=== PATIENT | male | born 1975 | race Caucasian/White ===

== ENCOUNTER 2019-06-29 01:51 | Emergency (ER) | payer BC ==
[2019-06-29] MEDS ORDERED: Sodium Chloride 0.9% 1,000 ML IV ONE (02:13)
--- NOTE | 2019-06-29 02:18 | EDM.PDOC ---
ED HPI GENERAL MEDICAL PROBLEM - General Chief Complaint: Gastrointestinal Problem Stated Complaint: abdominal pain, diarrhea Time Seen by Provider: 06/29/19 02:00 Source of Information: Reports: Patient, Significant Other History Limitations: Reports: No Limitations - History of Present Illness INITIAL COMMENTS - FREE TEXT/NARRATIVE: Patient presents with epigastric pain severe for the past 1.5 hours. He feels bloated but has passed gas and belching fairly often the past few days. He has had diarrhea for the last 4 days from 4-10 times a day. No vomiting except one time 5 days ago, which was after a night at the bar. He's never had this before and denies any history of ulcers, pancreatitis or diabetes. 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: Other (see below) Other Treatments ASSET PROTECTION SPECIALIST: took pepto at 2100 06/28 - Related Data Allergies Allergy/AdvReac Type Severity Reaction Status Date / Time No Known Allergies Allergy Verified 06/29/19 02:28 Home Meds: Home Meds Lisinopril/Hydrochlorothiazide [Lisinopril-HCTZ 10-12.5 MG] 06/29/19 [History] Social & Family History - Tobacco Use Smoking Status *Q: Never Smoker Second Hand Smoke Exposure: No - Caffeine Use Caffeine Use: Reports: Coffee, Soda - Recreational Drug Use Recreational Drug Use: No ED ROS GENERAL - Review of Systems Review Of Systems: See Below Constitutional: Reports: Malaise. Denies: Fever, Chills, Weakness HEENT: Reports: No Symptoms Respiratory: Reports: No Symptoms Cardiovascular: Reports: No Symptoms Endocrine: Reports: No Symptoms GI/Abdominal: Reports: Abdominal Pain, Diarrhea. Denies: Decreased Appetite, Vomiting : Reports: Dysuria (a little bit that he figured was because he was dehydrated ). Denies: Flank Pain Musculoskeletal: Reports: No Symptoms Skin: Reports: No Symptoms Neurological: Reports: No Symptoms Psychiatric: Reports: No Symptoms ED EXAM, GI/ABD - Physical Exam Exam: See Below Exam Limited By: No Limitations General Appearance: Alert, WD/WN, No Apparent Distress Eyes: Bilateral: Normal Appearance, EOMI Ears: Normal External Exam, Hearing Grossly Normal Nose: Normal Inspection, No Blood Throat/Mouth: Normal Inspection, Normal Lips, Normal Voice, No Airway Compromise Head: Atraumatic, Normocephalic Neck: Normal Inspection, Full Range of Motion Respiratory/Chest: No Respiratory Distress, Lungs Clear, Normal Breath Sounds, No Accessory Muscle Use, Chest Non-Tender Cardiovascular: Regular Rate, Rhythm, No Murmur GI/Abdominal Exam: Non-Tender, No Organomegaly, Distended (mild-moderate), Abnormal Bowel Sounds (a little increased). No: Guarding, Rigid, Tender Back Exam: Normal Inspection, Full Range of Motion. No: CVA Tenderness (L), CVA Tenderness (R) Extremities: Normal Inspection, Normal Range of Motion Neurological: Alert, Oriented, Normal Cognition, No Motor/Sensory Deficits Psychiatric: Normal Affect, Normal Mood Skin Exam: Warm, Dry, Intact, Normal Color, No Rash Course - Vital Signs Last Recorded V/S: Last Vital Signs Temp 97.0 F 06/29/19 02:03 Pulse 96 06/29/19 02:03 Resp 18 06/29/19 02:03 BP 129/70 06/29/19 02:03 Pulse Ox 99 06/29/19 02:03 - Orders/Labs/Meds Orders: Active Orders 24 hr Category Date Time Status Abdomen Pelvis w Cont [CT] Stat Exams 06/29/19 02:11 Taken Sodium Chloride 0.9% [Normal Saline] 50 ml Med 06/29/19 02:30 Active IV ASDIRECTED Medication Orders Sodium Chloride (Normal Saline) 50 mls @ 200 mls/hr IV ASDIRECTED MICHELL Last Admin: 06/29/19 02:47 Dose: 200 mls/hr Labs: Laboratory Tests 06/29/19 06/29/19 06/29/19 Range/Units 02:17 02:17 02:50 WBC 6.02 (5.00-10.00) 10^3/uL RBC 5.04 (4.50-6.00) 10^6/uL Hgb 14.5 (13.0-17.0) g/dL Hct 40.8 (40.0-52.0) % MCV 81.0 L (82.0-92.0) fL MCH 28.8 (27.0-31.0) pg MCHC 35.5 (32.0-36.0) g/dL RDW 13.3 (11.5-14.5) % Plt Count 191 (150-400) 10^3/uL MPV 9.7 (7.4-10.4) fL Immature Gran % (Auto) 0.2 (0.0-5.0) % Neut % (Auto) 79.9 H (50.0-70.0) % Lymph % (Auto) 7.1 L (20.0-40.0) % [place] % (Auto) 9.3 H (2.0-8.0) % Eos % (Auto) 3.3 H (1.0-3.0) % Baso % (Auto) 0.2 (0.0-1.0) % Immature Gran # (Auto) 0.01 (0.00-0.50) 10^3/uL Neut # (Auto) 4.81 (2.50-7.00) 10^3/uL Lymph # (Auto) 0.43 L (1.00-4.00) 10^3/uL [place] # (Auto) 0.56 (0.10-0.80) 10^3/uL Eos # (Auto) 0.20 (0.10-0.30) 10^3/uL Baso # (Auto) 0.01 (0.00-0.10) 10^3/uL Sodium 139 (136-145) mmol/L Potassium 3.1 L (3.3-5.3) mmol/L Chloride 101 (98-115) mmol/L Carbon Dioxide 24.9 (21.0-32.0) mmol/L Anion Gap 16.2 H (5-15) mmol/L BUN 12 (6-25) mg/dL Creatinine 0.84 (0.51-1.17) mg/dL Est Cr Clr Drug Dosing 129.47 mL/min Estimated GFR (MDRD) > 60 mL/min Glucose 102 H (75 - 99) mg/dL Calcium 8.4 L (8.7-10.3) mg/dL Total Bilirubin 0.5 (0.2-1.0) mg/dL AST 63 H (15-37) U/L ALT 48 (12-78) U/L Alkaline Phosphatase 66 (46-116) IU/L Total Protein 6.6 (6.4-8.2) g/dL Albumin 3.02 (3.00-4.80) g/dL Lipase 314 (73-393) U/L Specimen Type Urinblad Urine Color Dark yellow H (YELLOW) Urine Appearance Clear (CLEAR) Urine pH 5.5 (5.0-9.0) Ur Specific [place] 1.025 (1.005-1.030) Urine Protein Trace H (NEGATIVE) mg/dL Urine Glucose (UA) Negative (NEGATIVE) mg/dL Urine Ketones 15 H (NEGATIVE) mg/dL Urine Occult Blood Moderate H (NEGATIVE) Urine Nitrite Negative (NEGATIVE) Urine Bilirubin Small H (NEGATIVE) Urine Urobilinogen 0.2 (0.2-1.0) E.U./dL Ur Leukocyte Esterase Trace H (NEGATIVE) Urine RBC 20-30 H (0-5) /HPF Urine WBC 5-10 H (0-5) /HPF Ur Epithelial Cells Few /LPF Amorphous Sediment Few (0/HPF) /HPF Urine Bacteria Not seen (NONE TO FEW) /HPF Urine Mucus Many H (NEGATIVE) /LPF Meds: Medications Generic Name Dose Route Start Last Admin Trade Name Freq PRN Reason Stop Dose Admin Sodium Chloride 50 mls @ 200 mls/hr 06/29/19 02:30 06/29/19 02:47 Normal Saline IV 200 mls/hr ASDIRECTED MICHELL Administration Discontinued Medications Generic Name Dose Route Start Last Admin Trade Name Freq PRN Reason Stop Dose Admin Sodium Chloride 1,000 mls @ 999 mls/hr 06/29/19 02:13 06/29/19 02:44 Normal Saline IV 06/29/19 03:13 999 mls/hr .BOLUS ONE Administration Iopamidol 100 ml 06/29/19 02:30 06/29/19 02:47 Isovue-370 (76%) IV 06/29/19 02:31 100 ml ONETIME ONE Administration - Re-Assessments/Exams Free Text/Narrative Re-Assessment/Exam: 06/29/19 03:57 UA shows moderate hematuria without evidence of infection. CBC, CMP and Lipase are basically normal. CT shows minimal diffuse thickening of the gallbladder and suggests US. CT also shows underdistended urinary bladder. Discussed findings and recommendations with patient and his . He is feeling well now without pain. The only treatment we gave was IV fluids. I encouraged increased water intake. Patient discharged to home in stable condition. Departure - Departure Time of Disposition: 03:51 Disposition: Home, Self-Care 01 Condition: Good Clinical Impression: Gall bladder disease, Microscopic hematuria, Epigastric abdominal pain - Discharge Information Instructions: Hematuria, Adult Forms: ED Department Discharge Additional Instructions: 1. Drink 8 cups of water daily. 2. Try to notice if you seem to get abdominal pain after eating certain types of foods. 3. Follow up with your PCP for evaluation of the gall bladder with ultrasound and recheck of the hematuria (blood in urine). 4. You can use Ibuprofen 200-600 mg three times a day as needed for pain control. 5. Return to ER as needed. - My Orders Last 24 Hours: My Active Orders 06/29/19 02:11 Abdomen Pelvis w Cont [CT] Stat 06/29/19 02:30 Sodium Chloride 0.9% [Normal Saline] 50 ml IV ASDIRECTED - Assessment/Plan Last 24 Hours: My Active Orders 06/29/19 02:11 Abdomen Pelvis w Cont [CT] Stat 06/29/19 02:30 Sodium Chloride 0.9% [Normal Saline] 50 ml IV ASDIRECTED
[2019-06-29] MEDS ORDERED: Sodium Chloride 0.9% 50 ML IV SCH (02:30)
[2019-06-29] MEDS ORDERED: Iopamidol 755 Mg/ML 100 ML Bottle IV ONE (02:30)
[2019-06-29 03:12] LABS: ANION GAP 16.2 mmol/L (5-15); CHLORIDE,CL 101 mmol/L (98-115); SODIUM,NA 139 mmol/L (136-145)
--- NOTE | 2019-06-29 07:24 | CT ---
[id number] CT/CT Abdomen Pelvis W IV EXAM: CT Abdomen Pelvis W IV CLINICAL DATA: ABDOMINAL PAIN COMPARISON: NO PREVIOUS SIMILAR EXAM IS AVAILABLE. FINDINGS: The liver and spleen are unremarkable. The kidneys and adrenals show no abnormality. The aorta and pancreas are within normal limits. There is no bowel distention. There is no bowel wall thickening either. There is no free fluid or free air. There is no adenopathy. The pelvis shows no mass, free fluid, abscess, inflammatory change, or adenopathy. There is an incidental small left renal cyst IMPRESSION: NO ACUTE PROCESS. Bashir Mckeon MD 06/29/19 0721 Thank you for allowing us to participate in the care of your patient.
== END 2019-06-29 04:00 | disposition home or self-care (01) ==
LOC: KA.ED 01:51
DX: K82.9 Disease of gallbladder, unspecified (principal); R31.29 Other microscopic hematuria; N32.89 Other specified disorders of bladder
CPT/HCPCS: 74177; 80053; 81001; 83690; 85025; 99284; J7030; J7050; Q9967